=== PATIENT | female | born 1955 | race Caucasian/White ===

== ENCOUNTER 2017-05-27 11:00 | Emergency (ER) | payer BC, OTHER ==
[2017-05-27 11:14] VITALS: BP 157/86
[2017-05-27] MEDS ORDERED: Take Home: predniSONE 20 MG, 2 Tab Pack PO ONE (11:26)
--- NOTE | 2017-05-27 11:26 | EDM.PDOC ---
ED HPI GENERAL MEDICAL PROBLEM - General Chief Complaint: General Stated Complaint: Facial swelling Time Seen by Provider: 05/27/17 11:14 Source of Information: Reports: Patient, RN, RN Notes Reviewed History Limitations: Reports: No Limitations - History of Present Illness INITIAL COMMENTS - FREE TEXT/NARRATIVE: Patient presents to the ED at [facility] complaining of right side facial swelling that started last evening. Patient states she was at a wedding last night and felt a tooth brake off while she was eating. Patient states she is in the process of having all her teeth removed in preparation for artificial teeth placement. She noticed some facial swelling last night, but it has progressively gotten worse this AM. No fevers or chills. Patient has been using Ibuprofen for pain, which works well. No gum swelling. No evidence of dental abscess infection. Onset Date: 05/26/17 - Related Data Allergies Allergy/AdvReac Type Severity Reaction Status Date / Time No Known Allergies Allergy Verified 01/30/15 16:26 Home Meds: Home Meds Amoxicillin 875 mg PO BID #20 tablet 01/30/15 [Rx] Cetirizine HCl/Pseudoephedrine [Zyrtec-D Tablet] 1 each PO Q12H PRN #14 tab.er.12h 01/30/15 [Rx] Ibuprofen [Motrin] 600 mg PO Q6H PRN #14 tab 01/30/15 [Rx] predniSONE [Deltasone] 20 mg PO BID #10 tablet 05/27/17 [Rx] Past Medical History - Past Health History Medical/Surgical History: Denies Medical/Surgical History Social & Family History - Tobacco Use Smoking Status *Q: Current Every Day Smoker Years of Tobacco use: 20 Used Tobacco, but Quit: No Second Hand Smoke Exposure: No - Alcohol Use Days Per Week of Alcohol Use: 0 - Recreational Drug Use Recreational Drug Use: No ED ROS GENERAL - Review of Systems Review Of Systems: See Below Constitutional: Denies: Fever, Chills, Decreased Appetite HEENT: Reports: Dental Pain, Other (right facial swelling) Respiratory: Denies: Shortness of Breath, Cough Cardiovascular: Denies: Chest Pain, Palpitations Skin: Reports: No Symptoms Neurological: Denies: Dizziness, Headache, Numbness, Tingling ED EXAM, GENERAL - Physical Exam Exam: See Below Exam Limited By: No Limitations General Appearance: Alert, No Apparent Distress Eye Exam: Bilateral Eye: EOMI, Normal Inspection, PERRL Throat/Mouth: Other (multiple missing teeth; no evidence of dental abscess; gums non-tender on exam) Head: Facial Swelling (right) Neck: Supple Respiratory/Chest: No Respiratory Distress, Lungs Clear, Normal Breath Sounds Cardiovascular: Regular Rate, Rhythm Neurological: Alert, Oriented Skin Exam: Warm, Dry, Intact, Normal Color, No Rash Course - Vital Signs Last Recorded V/S: Last Vital Signs Temp 36.2 C 05/27/17 11:05 Pulse 70 05/27/17 11:05 Resp 12 05/27/17 11:05 BP 157/86 H 05/27/17 11:05 Pulse Ox 96 05/27/17 11:05 Departure - Departure Time of Disposition: 11:27 Disposition: Home, Self-Care 01 Condition: Good Clinical Impression: Right facial swelling - Discharge Information Prescriptions: predniSONE [Deltasone] 20 mg PO BID #10 tablet Referrals: Karine Hdz MD [Primary Care Provider] - Forms: ED Department Discharge Additional Instructions: 1. Stay well hydrated and rest 2. May alternate heat/ice to right side of face to help with swelling 3. Continue with Tylenol/Advil as needed for pain 4. Take Prednisone for the full coarse, even if symptoms are better 5. See your Primary as symptoms warrant - Problem List Review Problem List Initiated/Reviewed/Updated: Yes
== END 2017-05-27 11:40 | disposition home or self-care (01) ==
LOC: VM.ED 11:00
DX: R22.0 Localized swelling, mass and lump, head (principal); F17.210 Nicotine dependence, cigarettes, uncomplicated
CPT/HCPCS: 99282; A9270

== ENCOUNTER 2020-01-04 22:44 | Emergency (ER) | payer OTHER ==
[2020-01-04] MEDS: Aspirin 81 MG Tab.Chew PO ONE (23:05)
[2020-01-04] MEDS: GI Cocktail Oral Solution 30 ML PO ONE (23:15)
[2020-01-05] LABS: CHLORIDE,CL 105 mmol/L (98-107); SODIUM,NA 143 mmol/L (136-145)
[2020-01-05 00:01] LABS: ANION GAP 11.8 mmol/L (10-20)
--- NOTE | 2020-01-05 01:12 | EDM.PDOC ---
ED HPI GENERAL MEDICAL PROBLEM - General Chief Complaint: Gastrointestinal Problem Stated Complaint: HEARTBURN SYMPTOMS Time Seen by Provider: 01/04/20 22:44 Source of Information: Reports: Patient History Limitations: Reports: No Limitations - History of Present Illness INITIAL COMMENTS - FREE TEXT/NARRATIVE: Patient presents to the ER with epigastric pain. Patient states she started to feel this discomfort this morning. Patient states she only gets heart burn symptoms about 2-3 times a year. She states chocolate will sometimes give her heart burn and consumed a large amount around 's day Patient states she took some of her mother's prescription medication for GERD with no relief today. patient denies palpitations, SOB, wheezing, edema, arm pain, cough, nausea, diarrhea. Onset: Today Duration: Getting Worse Location: Reports: Chest, Abdomen Quality: Reports: Ache, Burning. Denies: Pressure Severity: Moderate Improves with: Reports: None Worsens with: Reports: None Associated Symptoms: Reports: No Other Symptoms - Related Data Allergies Allergy/AdvReac Type Severity Reaction Status Date / Time No Known Allergies Allergy Verified 01/30/15 16:26 Home Meds: Home Meds Amoxicillin 875 mg PO BID #20 tablet 01/30/15 [Rx] Cetirizine HCl/Pseudoephedrine [Zyrtec-D Tablet] 1 each PO Q12H PRN #14 tab.er.12h 01/30/15 [Rx] Ibuprofen [Motrin] 600 mg PO Q6H PRN #14 tab 01/30/15 [Rx] predniSONE [Deltasone] 20 mg PO BID #10 tablet 05/27/17 [Rx] Past Medical History - Past Health History Medical/Surgical History: Denies Medical/Surgical History Social & Family History - Caffeine Use Caffeine Use: Reports: Coffee ED ROS GENERAL - Review of Systems Review Of Systems: See Below Constitutional: Denies: Fever, Chills, Malaise, Weakness, Fatigue, Decreased Appetite HEENT: Reports: No Symptoms Respiratory: Reports: No Symptoms. Denies: Shortness of Breath, Wheezing, Pleuritic Chest Pain, Cough, Sputum Cardiovascular: Reports: No Symptoms. Denies: Chest Pain, Dyspnea on Exertion, Edema, Palpitations, Syncope Endocrine: Reports: No Symptoms GI/Abdominal: Reports: Abdominal Pain. Denies: Constipation, Diarrhea, Decreased Appetite, Nausea : Reports: No Symptoms Musculoskeletal: Reports: No Symptoms Skin: Reports: No Symptoms Neurological: Reports: No Symptoms Psychiatric: Reports: No Symptoms Hematologic/Lymphatic: Reports: No Symptoms Immunologic: Reports: No Symptoms ED EXAM, GENERAL - Physical Exam Exam: See Below Exam Limited By: No Limitations General Appearance: Alert, WD/WN, No Apparent Distress Eye Exam: Bilateral Eye: EOMI, PERRL Ears: Normal External Exam Ear Exam: Bilateral Ear: Auricle Normal Nose: Normal Inspection, Normal Mucosa, No Blood Head: Atraumatic, Normocephalic Neck: Normal Inspection, Supple, Non-Tender, Full Range of Motion Respiratory/Chest: No Respiratory Distress, Lungs Clear, Normal Breath Sounds, No Accessory Muscle Use, Chest Non-Tender Cardiovascular: Normal Peripheral Pulses, Regular Rate, Rhythm, No Edema, No Murmur Peripheral Pulses: 2+: Radial (L), Radial (R) GI/Abdominal: Normal Bowel Sounds, Soft, Non-Tender, No Organomegaly, No Distention, No Mass (Female) Exam: Deferred Rectal (Female) Exam: Deferred Back Exam: Normal Inspection, Full Range of Motion Extremities: Normal Inspection Neurological: Alert, Oriented, CN II-XII Intact, Normal Cognition, Normal Gait Psychiatric: Normal Affect, Normal Mood Skin Exam: Warm, Dry, Intact, Normal Color, No Rash Lymphatic: No Adenopathy Course - Orders/Labs/Meds Orders: Active Orders 24 hr Category Date Time Status EKG Documentation Completion [RC] STAT Care 01/04/20 23:01 Active Chest 1V Frontal [CR] Stat Exams 01/04/20 23:04 Taken AMYLASE [CHEM] Stat Lab 01/04/20 23:22 Results COMPREHENSIVE METABOLIC PN,CMP [CHEM] Stat Lab 01/04/20 23:22 Results CRP [C-REACTIVE PROTEIN] [CHEM] Stat Lab 01/04/20 23:22 Results LIPASE [CHEM] Stat Lab 01/04/20 23:22 Results MAGNESIUM [CHEM] Stat Lab 01/04/20 23:22 Results TROPONIN I [CHEM] Stat Lab 01/04/20 23:22 Results TSH ULTRASENSITIVE [CHEM] Stat Lab 01/04/20 23:22 Results Labs: Laboratory Tests 01/04/20 01/04/20 01/04/20 Range/Units 23:22 23:22 23:22 WBC 12.4 H (4.0-10.0) x10^3/uL RBC 4.46 (4.00-5.50) x10^6/uL Hgb 13.7 (12.0-16.0) g/dL Hct 40.4 (33.0-47.0) % MCV 90.6 (78.0-93.0) fL MCH 30.7 (26.0-32.0) pg MCHC 33.9 (32.0-36.0) g/dL RDW Coeff of Reshma 13.3 (10.0-15.0) % Plt Count 320 (130-400) x10^3/uL Neut % (Auto) 55.0 (50.0-80.0) % Lymph % (Auto) 36.5 (25.0-50.0) % [place] % (Auto) 6.6 (2.0-11.0) % Eos % (Auto) 1.5 (0.0-4.0) % Baso % (Auto) 0.4 (0.2-1.2) % PT 9.9 L (10.0-12.8) SEC INR 0.9 L (2.0-3.5) D-Dimer, Quantitative (<=0.58) mg/LFEU Sodium 143 (136-145) mmol/L Potassium 3.8 (3.5-5.1) mmol/L Chloride 105 (98-107) mmol/L Carbon Dioxide 30 (21-32) mmol/L Anion Gap 11.8 (10-20) mmol/L Creatinine 0.9 (0.55-1.02) mg/dL Est Cr Clr Drug Dosing TNP Estimated GFR (MDRD) > 60 Glucose 97 (74-106) mg/dL Calcium 9.2 (8.5-10.1) mg/dL Corrected Calcium 9.60 (8.5-10.1) mg/dL Magnesium 1.8 (1.8-2.4) mg/dL Total Bilirubin 0.4 (0.2-1.0) mg/dL AST 11 L (15-37) U/L ALT 15 (14-59) U/L Alkaline Phosphatase 101 (46-116) U/L Troponin I < 0.017 (<=0.056) ng/mL C-Reactive Protein 0.5 (<=0.9) mg/dL Total Protein 6.9 (6.4-8.2) g/dL Albumin 3.5 (3.4-5.0) g/dL Globulin 3.4 Albumin/Globulin Ratio 1.03 Amylase 79 (25-115) U/L Lipase 173 (73-393) U/L TSH, Ultra Sensitive 4.767 H (0.358-3.74) uIU/mL 01/04/20 Range/Units 23:22 WBC (4.0-10.0) x10^3/uL RBC (4.00-5.50) x10^6/uL Hgb (12.0-16.0) g/dL Hct (33.0-47.0) % MCV (78.0-93.0) fL MCH (26.0-32.0) pg MCHC (32.0-36.0) g/dL RDW Coeff of Reshma (10.0-15.0) % Plt Count (130-400) x10^3/uL Neut % (Auto) (50.0-80.0) % Lymph % (Auto) (25.0-50.0) % [place] % (Auto) (2.0-11.0) % Eos % (Auto) (0.0-4.0) % Baso % (Auto) (0.2-1.2) % PT (10.0-12.8) SEC INR (2.0-3.5) D-Dimer, Quantitative 0.35 (<=0.58) mg/LFEU Sodium (136-145) mmol/L Potassium (3.5-5.1) mmol/L Chloride (98-107) mmol/L Carbon Dioxide (21-32) mmol/L Anion Gap (10-20) mmol/L Creatinine (0.55-1.02) mg/dL Est Cr Clr Drug Dosing Estimated GFR (MDRD) Glucose (74-106) mg/dL Calcium (8.5-10.1) mg/dL Corrected Calcium (8.5-10.1) mg/dL Magnesium (1.8-2.4) mg/dL Total Bilirubin (0.2-1.0) mg/dL AST (15-37) U/L ALT (14-59) U/L Alkaline Phosphatase (46-116) U/L Troponin I (<=0.056) ng/mL C-Reactive Protein (<=0.9) mg/dL Total Protein (6.4-8.2) g/dL Albumin (3.4-5.0) g/dL Globulin Albumin/Globulin Ratio Amylase (25-115) U/L Lipase (73-393) U/L TSH, Ultra Sensitive (0.358-3.74) uIU/mL Meds: Medications Discontinued Medications Generic Name Dose Route Start Last Admin Trade Name Fabien PRN Reason Stop Dose Admin Al Hydroxide/Mg Hydroxide 30 ml 01/04/20 23:10 01/04/20 23:15 Gi Cocktail PO 01/04/20 23:11 30 ml ONETIME ONE Administration Aspirin 324 mg 01/04/20 23:04 01/04/20 23:05 Aspirin PO 01/04/20 23:05 324 mg ONETIME ONE Administration - Re-Assessments/Exams Free Text/Narrative Re-Assessment/Exam: Symptoms improve after GI cocktail EKG shows NSR 01/05/20 01:17 Departure - Departure Time of Disposition: 12:15 Disposition: Home, Self-Care 01 Condition: Good Clinical Impression: GERD (gastroesophageal reflux disease) - Discharge Information Instructions: Heartburn, [id number], Food Choices for Gastroesophageal Reflux Disease, Adult Referrals: Karine Hdz MD [Primary Care Provider] - Forms: ED Department Discharge Additional Instructions: TUMS or milk of magnesia as needed for continued heartburn. Recheck in clinic in 10-14 days If you are continuing to have symptoms, you may want to try some pepcid or prilosec (although the prilosec takes time to work) Return to ER if you have worsening discomfort, shortness of breath, or other worrisome signs/symptoms. - My Orders Last 24 Hours: My Active Orders 01/04/20 23:01 EKG Documentation Completion [RC] STAT 01/04/20 23:04 Chest 1V Frontal [CR] Stat 01/04/20 23:22 AMYLASE [CHEM] Stat COMPREHENSIVE METABOLIC PN,CMP [CHEM] Stat CRP [C-REACTIVE PROTEIN] [CHEM] Stat LIPASE [CHEM] Stat MAGNESIUM [CHEM] Stat TROPONIN I [CHEM] Stat TSH ULTRASENSITIVE [CHEM] Stat - Assessment/Plan Last 24 Hours: My Active Orders 01/04/20 23:01 EKG Documentation Completion [RC] STAT 01/04/20 23:04 Chest 1V Frontal [CR] Stat 01/04/20 23:22 AMYLASE [CHEM] Stat COMPREHENSIVE METABOLIC PN,CMP [CHEM] Stat CRP [C-REACTIVE PROTEIN] [CHEM] Stat LIPASE [CHEM] Stat MAGNESIUM [CHEM] Stat TROPONIN I [CHEM] Stat TSH ULTRASENSITIVE [CHEM] Stat Plan: TUMS or milk of magnesia as needed for continued heartburn. Recheck in clinic in 10-14 days If you are continuing to have symptoms, you may want to try some pepcid or prilosec (although the prilosec takes time to work) Return to ER if you have worsening discomfort, shortness of breath, or other worrisome signs/symptoms.
[2020-01-05 05:23] VITALS: BP 150/80; PULSE 66
--- NOTE | 2020-01-05 07:51 | CR ---
[id number] RAD/RAD Chest PA or AP 1V EXAM: SINGLE VIEW CHEST. INDICATION: CHEST PAIN COMPARISON: NO PREVIOUS SIMILAR EXAM IS AVAILABLE FINDINGS: The lungs are clear The cardiomediastinal contour is moderately enlarged IMPRESSION: NO PNEUMONIA OR EDEMA Byron Hogan MD 01/05/20 [id number] Thank you for allowing us to participate in the care of your patient.
== END 2020-01-05 00:32 | disposition home or self-care (01) ==
LOC: VM.ED 22:44
DX: K21.9 Gastro-esophageal reflux disease without esophagitis (principal)
CPT/HCPCS: 36415; 71045; 80053; 82150; 83690; 83735; 84443; 84484; 85025; 85379; 85610; 86140; 93005; 99284-25; A9270-GY